=== PATIENT | male | born 1955 | race Caucasian/White ===

== ENCOUNTER 2018-01-10 22:29 | Emergency (ER) | payer BC ==
[2018-01-11] MEDS ORDERED: Ofloxacin 0.3% OTIC.SOL* 5 ML BTL LEFT EAR ONE (01:03)
[2018-01-11 01:44] VITALS: BP 138/94
--- NOTE | 2018-01-11 02:40 | ED ---
Moy Sims Stephanie, scribed for Silvia Stauffer MD on 01/11/18 at 0131 . Throat Pain/Nasal Congestion - HPI Summary HPI Summary: The pt is a 62 y/o M presenting to the ED with c/o L ear pain and humming that began at 13:30 today s/p ear cleaning at [facility] at 13:00. HPI limited due to the pt being a poor historian. The pt states he consumed ETOH today. He states the doctor at [facility] also used q-tips as well as flushing out ears. - History of Current Complaint Chief Complaint: EDEarPain Time Seen by Provider: 01/10/18 23:56 Hx Obtained From: Patient Onset/Duration: Lasting Hours, Still Present Severity: Moderate - Allergies/Home Medications Allergies/Adverse Reactions: Allergies Allergy/AdvReac Type Severity Reaction Status Date / Time No Known Allergies Allergy Verified 01/10/18 22:37 PMH/Surg Hx/FS Hx/Imm Hx Endocrine/Hematology History: Reports: Hx Thyroid Disease Denies: Hx Diabetes Cardiovascular History: Reports: Hx Hypertension Respiratory History: Denies: Hx Asthma, Hx Chronic Obstructive Pulmonary Disease (COPD) GI History: Denies: Hx Ulcer EENT History: Denies: Hx Deafness - Cancer History Cancer Type, Location and Year: 1978 Testicular CA - Surgical History Surgery Procedure, Year, and Place: 1978: Lymph node removal groin/back secondary to teticular CA Infectious Disease History: No Infectious Disease History: Denies: Hx Hepatitis, Hx Human Immunodeficiency Virus (HIV), Traveled Outside the [place] in Last 30 Days - Family History Known Family History: Positive: Unknown - The pt denies and fhx. - Social History Occupation: Employed Part-time Lives: With Family Alcohol Use: Occasionally Hx Substance Use: No Substance Use Type: Reports: None Hx Tobacco Use: Yes Smoking Status (MU): Former Smoker Review of Systems Negative: Fever Positive: Ear Ache - L side, Other - bleeding from L ear All Other Systems Reviewed And Are Negative: Yes Physical Exam - Summary Physical Exam Summary: VITAL SIGNS: Reviewed. GENERAL: Patient is a well-developed and nourished MALE who is lying comfortable in the stretcher. Patient is not in any acute respiratory distress. HEAD AND FACE: No signs of trauma. No ecchymosis, hematomas or skull depressions. No sinus tenderness. EYES: PERRLA, EOMI x 2, No injected conjunctiva, no nystagmus. EARS: L ear contains white bacterium soaked with blood, R ear has dry wax. L ear not able to see TM. ED physician attempted to move bloody material however, it is stuck to the ear canal. After removing some dried material, ED physician still cannot see TM. Decreased hearing in L ear. MOUTH: Oropharynx within normal limits. NECK: Supple, trachea is midline, no adenopathy, no JVD, no carotid bruit, no c- spine tenderness, neck with full ROM. CHEST: Symmetric, no tenderness at palpation LUNGS: Clear to auscultation bilaterally. No wheezing or crackles. CVS: Regular rate and rhythm, S1 and S2 present, no murmurs or gallops appreciated. ABDOMEN: Soft, non-tender. No signs of distention. No rebound no guarding, and no masses palpated. Bowel sounds are normal. EXTREMITIES: FROM in all major joints, no edema, no cyanosis or clubbing. NEURO: Alert and oriented x 3. No acute neurological deficits. Speech is normal and follows commands. SKIN: Dry and warm Triage Information Reviewed: Yes Vital Signs On Initial Exam: Initial Vitals Temp Pulse Resp BP Pulse Ox 97.2 F 92 18 157/97 92 01/10/18 22:35 01/10/18 22:35 01/10/18 22:35 01/10/18 22:35 01/10/18 22:35 Vital Signs Reviewed: Yes Diagnostics - Vital Signs Vital Signs Temp Pulse Resp BP Pulse Ox 01/10/18 22:35 97.2 F 92 18 157/97 92 - Laboratory Lab Statement: Any lab studies that have been ordered have been reviewed, and results considered in the medical decision making process. EENT Course/Dx - Course Course Of Treatment: The pt is a 62 y/o M presenting to the ED with c/o L ear pain and humming that began at 13:30 today s/p ear cleaning at [facility] at 13: 00. HPI limited due to the pt being a poor historian. The pt states he consumed ETOH today. He states the doctor at [facility] also used q-tips as well as flushing out ears. - Diagnoses Provider Diagnoses: Tympanic membrane perforation Discharge - Sign-Out/Discharge Documenting (check all that apply): Discharge - Discharge Plan Condition: Stable Disposition: HOME Patient Education Materials: Ruptured Eardrum (ED) Forms: *Work Release Referrals: Cecilio De La Rosa MD [Medical Doctor] - As Soon As Possible Additional Instructions: RETURN TO EMERGENCY DEPARTMENT FOR ANY NEW OR WORSENING SYMPTOMS The documentation as recorded by the Moy gibbs Stephanie accurately reflects the service I personally performed and the decisions made by , Silvia Stauffer MD.
== END 2018-01-11 01:43 | disposition home or self-care (01) ==
LOC: ED 22:29
DX: H72.92 Unspecified perforation of tympanic membrane, left ear (principal); E07.9 Disorder of thyroid, unspecified; I10 Essential (primary) hypertension; Z87.891 Personal history of nicotine dependence
CPT/HCPCS: 99282; A9270-GY

== ENCOUNTER 2019-06-09 08:30 | Emergency (ER) | payer BC, OTHER ==
[2019-06-09] MEDS ORDERED: Lidocaine 1% w EPI 1:100,000* MDV 20 ML VIAL INJ ONE (08:58)
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
[2019-06-09 10:20] LABS: ABS Neutrophils 7.6 10^3/ul (1.5-7.7); Hematocrit 50 % (42-52); Hemoglobin 17.9 g/dL (14.0-18.0); Mean Corpuscular HGB Conc 36 g/dL (31-36); Mean Corpuscular Hemoglobin 38 pg (27-31); Mean Corpuscular Volume 106 fL (80-94); Mean Platelet Volume 6.5 fL (7.4-10.4); Platelet Count 281 10^3/uL (150-450); Red Blood Count 4.73 10^6 /uL (4.18-5.48); Red Cell Distribution Width 14 % (10-15); White Blood Count 9.1 10^3/uL (3.5-10.8)
[2019-06-09 10:24] LABS: Activated Partial Thrombo Time 53.4 seconds (26.0-38.0); INR 1.97 (0.82-1.09)
[2019-06-09 10:38] LABS: Albumin 3.3 g/dL (3.2-5.2); Albumin/Globulin Ratio 1.1 (1-3); BUN/Creatinine Ratio 9.6 (8-20); Calcium 9.5 mg/dL (8.6-10.3); EGFR Non-African American 63.6 (>60); Globulin 2.9 g/dL (2-4); Potassium 4.5 mmol/L (3.5-5.0); Total Bilirubin 0.7 mg/dL (0.2-1.0); Total Protein 6.2 g/dL (6.4-8.9)
[2019-06-09 10:59] LABS: ABS Basophils 0.1 10^3/ul (0-0.2); ABS Eosinophils 0.1 10^3/ul (0-0.6); ABS Lymphocytes 0.8 10^3/ul (1.0-4.8); ABS Monocytes 0.5 10^3/ul (0-0.8); Eosinophil % 1.4 %; Nucleated Red Blood Cells % 0.1
[2019-06-09] MEDS ORDERED: NS 0.9% 1000 ML** 1,000 ML IV ONE (11:35)
[2019-06-09 11:45] VITALS: BP 131/101
== END 2019-06-09 11:45 | disposition home or self-care (01) ==
LOC: ED 08:30
DX: S01.111A Laceration without foreign body of right eyelid and periocular area, initial encounter (principal); S02.80XA Fracture of other specified skull and facial bones, unspecified side, initial encounter for closed fracture; M48.02 Spinal stenosis, cervical region; Y04.2XXA Assault by strike against or bumped into by another person, initial encounter; Y92.811 Bus as the place of occurrence of the external cause; Y99.0 Civilian activity done for income or pay; I48.91 Unspecified atrial fibrillation; E07.9 Disorder of thyroid, unspecified; I10 Essential (primary) hypertension; F17.200 Nicotine dependence, unspecified, uncomplicated; Z79.01 Long term (current) use of anticoagulants; Z79.899 Other long term (current) drug therapy
CPT/HCPCS: 12013; 36415; 70450; 70486; 72125; 80053; 85025; 85610; 85730; 99282

== ENCOUNTER 2021-11-28 05:15 | Inpatient (IN) ==
[2021-11-28] MEDS ORDERED: Lactated Ringers 1000 ml BAG 1,000 ML IV ONE (06:55)
[2021-11-28 07:55] LABS: ABS Lymphocytes 0.2 10^3/ul (1.0-4.8); ABS Monocytes 0.2 10^3/ul (0-0.8); ABS Neutrophils 10.1 10^3/ul (1.5-7.7); Eosinophil % 0.2 %; Hematocrit 40 % (42-52); Hemoglobin 13.6 g/dL (14.0-18.0); Lymphocyte % 1.7 %; Mean Corpuscular HGB Conc 34 g/dL (31-36); Mean Corpuscular Hemoglobin 37 pg (27-31); Mean Corpuscular Volume 107 fL (80-94); Mean Platelet Volume 7.6 fL (7.4-10.4); Platelet Count 261 10^3/uL (150-450); Red Blood Count 3.72 10^6 /uL (4.18-5.48); Red Cell Distribution Width 14 % (10-15); White Blood Count 10.5 10^3/uL (3.5-10.8)
[2021-11-28 07:56] LABS: Urine Appearance Clear; Urine Bilirubin Negative (Negative); Urine Blood 3+ (Negative); Urine Color Straw; Urine Glucose Negative (Negative); Urine Ketones Negative (Negative); Urine Nitrite Negative (Negative); Urine Protein 3+(>=500 mg/dL) (Negative); Urine Specific Gravity 1.007 (1.002-1.030); Urine Urobilinogen Negative (Negative)
[2021-11-28 08:04] LABS: ALT 17 U/L (7-52); Albumin 3.2 g/dL (3.2-5.2); Alkaline Phosphatase 45 U/L (35-149); Blood Urea Nitrogen 27 mg/dL (6-24); C Reactive Protein 17.66 mg/L (<8.01); CO2 Carbon Dioxide 21 mmol/L (22-32); Calcium 9.1 mg/dL (8.6-10.3); Chloride 102 mmol/L (101-111); Globulin 3.3 g/dL (2-4); Glucose 113 mg/dL (70-100); Sodium 132 mmol/L (135-145); Total Protein 6.5 g/dL (6.4-8.9); eGFR CKD-EPI 27.8 (>60)
[2021-11-28 08:08] LABS: Influenza A Molecular Negative (Negative); Influenza B Molecular Negative (Negative)
[2021-11-28 08:17] LABS: Urine Bacteria Absent (Absent); Urine Red Blood Cell 3+(>10/hpf) (Absent); Urine White Blood Cell Trace(0-5/hpf) (Absent)
[2021-11-28 08:19] LABS: Troponin I 0.09 ng/mL (<0.03)
[2021-11-28 08:26] LABS: Anion Gap 9 mmol/L (2-11)
[2021-11-28] MEDS ORDERED: Thiamine 100 MG/ML 2 ml VIAL (200 mg) IM ONE (09:07)
[2021-11-28 09:23] LABS: Activated Partial Thrombo Time 36.3 seconds (26.0-38.0); INR 1.07 (0.86-1.15)
[2021-11-28] MEDS ORDERED: Nicotine Lozenge mini 2 MG LOZNG.MINI MT PRN (09:25)
[2021-11-28 10:05] LABS: Rapid COVID-19 Molecular Undetected (Undetected)
[2021-11-28 10:12] LABS: Alcohol, S < 13 mg/dL (<13)
[2021-11-28] MEDS ORDERED: Albuterol HFA INHALER 8 gm MDI INH PRN (10:30)
[2021-11-28 11:21] LABS: Urine Benzodiazepine Screen None Detected (None Detect); Urine Cannabinoids Screen None Detected (None Detect); Urine Opiates Screen None Detected (None Detect)
[2021-11-28 11:31] LABS: Troponin I 0.08 ng/mL (<0.03)
[2021-11-28 12:36] LABS: Potassium, Whole Blood 4.8 mmol/L (3.4-4.5)
[2021-11-28 13:01] LABS: Troponin I 0.08 ng/mL (<0.03)
[2021-11-28] MEDS: Multivitamins/Minerals TAB PO SCH (13:26)
[2021-11-28 13:29] LABS: Anion Gap 10 mmol/L (2-11); Blood Urea Nitrogen 28 mg/dL (6-24); CO2 Carbon Dioxide 22 mmol/L (22-32); Calcium 9.1 mg/dL (8.6-10.3); Chloride 101 mmol/L (101-111); Glucose 224 mg/dL (70-100); Potassium 4.7 mmol/L (3.5-5.0); Sodium 133 mmol/L (135-145); eGFR CKD-EPI 27.8 (>60)
[2021-11-28 14:26] LABS: Urine Creatinine Concentration 42.77 mg/dL
[2021-11-28 17:46] LABS: Troponin I 0.08 ng/mL (<0.03)
[2021-11-28] MEDS ORDERED: Furosemide 40 mg/4 ml IV VIAL IV ONE (19:12)
[2021-11-28] MEDS ORDERED: SPIRIVA Respimat (tiotropium) 2.5 mcg/inh Inhaler INH SCH (20:00)
[2021-11-28] MEDS: SPIRIVA Respimat (tiotropium) 2.5 mcg/inh Inhaler INH SCH (20:31)
[2021-11-29 06:23] LABS: Calcium 8.6 mg/dL (8.6-10.3); Potassium 4.2 mmol/L (3.5-5.0); eGFR CKD-EPI 28.7 (>60)
[2021-11-29 06:50] LABS: TSH Ultra Thyroid Stim Horm 3.5 mcIU/mL (0.34-5.60)
[2021-11-29] MEDS: Multivitamins/Minerals TAB PO SCH (10:26)
[2021-11-29] MEDS ORDERED: Furosemide 40 mg/4 ml IV VIAL IV ONE (11:17)
[2021-11-29] MEDS: SPIRIVA Respimat (tiotropium) 2.5 mcg/inh Inhaler INH SCH (19:26)
[2021-11-29 23:44] LABS: Magnesium 1.8 mg/dL (1.9-2.7)
[2021-11-30 07:30] LABS: Calcium 9.1 mg/dL (8.6-10.3); Magnesium 1.7 mg/dL (1.9-2.7); Potassium 3.8 mmol/L (3.5-5.0); eGFR CKD-EPI 29.6 (>60)
[2021-11-30] MEDS ORDERED: Furosemide 40 mg/4 ml IV VIAL IV SLOW PU SCH (09:00)
[2021-11-30] MEDS: Multivitamins/Minerals TAB PO SCH (09:20)
[2021-11-30 12:06] LABS: ABS Basophils 0.1 10^3/ul (0-0.2); ABS Eosinophils 0.1 10^3/ul (0-0.6); ABS Lymphocytes 0.9 10^3/ul (1.0-4.8); ABS Monocytes 0.8 10^3/ul (0-0.8); ABS Neutrophils 9.3 10^3/ul (1.5-7.7); Eosinophil % 0.6 %; Hematocrit 43 % (42-52); Hemoglobin 14.6 g/dL (14.0-18.0); Lymphocyte % 8.4 %; Mean Corpuscular HGB Conc 34 g/dL (31-36); Mean Corpuscular Hemoglobin 37 pg (27-31); Mean Corpuscular Volume 107 fL (80-94); Mean Platelet Volume 7.3 fL (7.4-10.4); Platelet Count 311 10^3/uL (150-450); Red Blood Count 3.98 10^6 /uL (4.18-5.48); Red Cell Distribution Width 14 % (10-15); White Blood Count 11.2 10^3/uL (3.5-10.8)
[2021-11-30 16:31] VITALS: BP 150/94
[2021-11-30] MEDS: SPIRIVA Respimat (tiotropium) 2.5 mcg/inh Inhaler INH SCH (19:39)
== END 2021-11-30 16:15 | disposition home or self-care (01) | DRG 291 ==
LOC: ED 05:15 → EDHOLD 09:27 → SUATTDRO 09:27 → MEDTELE 16:36
PROVIDERS: ADMIT Internal Medicine; ATTEND Internal Medicine

== ENCOUNTER 2022-08-20 10:12 | Inpatient (IN) ==
[2022-08-20 12:21] LABS: ABS Basophils 0.1 10^3/ul (0-0.2); ABS Eosinophils 0.2 10^3/ul (0-0.6); ABS Lymphocytes 0.4 10^3/ul (1.0-4.8); ABS Monocytes 0.4 10^3/ul (0-0.8); ABS Neutrophils 7.6 10^3/ul (1.5-7.7); Eosinophil % 2.6 %; Hematocrit 32 % (42-52); Hemoglobin 10.5 g/dL (14.0-18.0); Lymphocyte % 5.1 %; Mean Corpuscular HGB Conc 33 g/dL (31-36); Mean Corpuscular Hemoglobin 34 pg (27-31); Mean Corpuscular Volume 101 fL (80-94); Mean Platelet Volume 6.5 fL (7.4-10.4); Platelet Count 361 10^3/uL (150-450); Red Blood Count 3.13 10^6 /uL (4.18-5.48); Red Cell Distribution Width 15 % (10-15); White Blood Count 8.6 10^3/uL (3.5-10.8)
[2022-08-20 12:32] LABS: Activated Partial Thrombo Time 44.7 seconds (26.0-38.0); INR 1.14 (0.89-1.11)
[2022-08-20 12:56] LABS: Albumin/Globulin Ratio 1.1 (1-3); C Reactive Protein 63.62 mg/L (<8.01); Calcium 8.8 mg/dL (8.6-10.3); Globulin 2.7 g/dL (2-4); Potassium 4.2 mmol/L (3.5-5.0); Total Bilirubin 0.3 mg/dL (0.2-1.0); Total Protein 5.7 g/dL (6.4-8.9); eGFR CKD-EPI 10.1 (>60)
[2022-08-20 16:38] LABS: Urine Appearance Clear; Urine Bilirubin Negative (Negative); Urine Blood 2+ (Negative); Urine Color Straw; Urine Glucose 1+(50 mg/dL) (Negative); Urine Ketones Negative (Negative); Urine Nitrite Negative (Negative); Urine Protein 3+(>=500 mg/dL) (Negative); Urine Specific Gravity 1.004 (1.002-1.030); Urine Urobilinogen Negative (Negative)
[2022-08-20 16:50] LABS: Urine Bacteria Absent (Absent); Urine Red Blood Cell 2+(6-10/hpf) (Absent); Urine Squamous Epithelial Cell Present (Absent); Urine White Blood Cell Absent (Absent)
[2022-08-20] MEDS ORDERED: Ondansetron 4 mg VIAL 2 MG/ML 2 ml VIAL IV PRN (16:51)
[2022-08-20 16:59] LABS: High Sensitivity Troponin 1 Hr 13 pg/mL (<20)
[2022-08-20] MEDS ORDERED: Lactated Ringers 1000 ml BAG 1,000 ML IV ONE (17:38)
[2022-08-20] MEDS ORDERED: Albuterol HFA INHALER 8 gm MDI INH PRN (17:45)
[2022-08-20 18:27] LABS: Urine Creatinine Concentration 27.44 mg/dL
[2022-08-20] MEDS ORDERED: Nicotine GUM 4MG FRUIT FLAVOR PO PRN (18:36)
[2022-08-20] MEDS ORDERED: Nicotine PATCH 21 MG/24 HR PATCH TRANSDERM ONE (18:36)
[2022-08-20 18:53] LABS: Activated Partial Thrombo Time 42.8 seconds (26.0-38.0); INR 1.05 (0.89-1.11)
[2022-08-20 19:19] LABS: Urine Osmo 154 mOsm/kg (150-1150)
[2022-08-20 19:40] LABS: Hepatitis B Surface Antigen Nonreactive (Nonreactive)
[2022-08-20 19:41] LABS: Calcium 8.7 mg/dL (8.6-10.3); Magnesium 2.6 mg/dL (1.9-2.7); Potassium 4.1 mmol/L (3.5-5.0)
[2022-08-20 19:44] LABS: HIV 4th Generation Nonreactive (Nonreactive)
[2022-08-20 19:45] LABS: Hepatitis A Ab IgM Negative (Negative)
[2022-08-20 19:46] LABS: Hepatitis B Core IgM Nonreactive (Nonreactive); eGFR CKD-EPI 9.3 (>60)
[2022-08-20 19:58] LABS: Hepatitis C Antibody Negative (Negative)
[2022-08-20] MEDS ORDERED: Lactated Ringers 1000 ml BAG 1,000 ML IV SCH (20:00)
[2022-08-20 20:06] LABS: TSH Ultra Thyroid Stim Horm 13.17 mcIU/mL (0.34-5.60)
[2022-08-20] MEDS ORDERED: Bumetanide IV 0.25 MG/ML 4 ml VIAL (1 mg) SLOW PUSH ONE (20:07)
[2022-08-20] MEDS: Heparin 5000 UNITS/ML 1 mL VIAL SUBCUT SCH (20:48)
[2022-08-21] MEDS: SPIRIVA Respimat (tiotropium) 2.5 mcg/inh Inhaler INH SCH ×2 (00:58→19:26)
[2022-08-21 04:29] LABS: Calcium 8.1 mg/dL (8.6-10.3); Potassium 3.8 mmol/L (3.5-5.0); eGFR CKD-EPI 9.4 (>60)
[2022-08-21 08:26] LABS: ABS Eosinophils 0.4 10^3/ul (0-0.6); ABS Lymphocytes 0.5 10^3/ul (1.0-4.8); ABS Monocytes 0.5 10^3/ul (0-0.8); ABS Neutrophils 4.9 10^3/ul (1.5-7.7); Eosinophil % 6.6 %; Hematocrit 28 % (42-52); Hemoglobin 9.5 g/dL (14.0-18.0); Mean Corpuscular HGB Conc 34 g/dL (31-36); Mean Corpuscular Hemoglobin 34 pg (27-31); Mean Corpuscular Volume 101 fL (80-94); Mean Platelet Volume 6.3 fL (7.4-10.4); Platelet Count 290 10^3/uL (150-450); Red Blood Count 2.78 10^6 /uL (4.18-5.48); Red Cell Distribution Width 15 % (10-15); White Blood Count 6.4 10^3/uL (3.5-10.8)
[2022-08-21 09:11] LABS: Albumin 2.6 g/dL (3.2-5.2); Calcium 8.3 mg/dL (8.6-10.3); Globulin 2.5 g/dL (2-4); Magnesium 2.3 mg/dL (1.9-2.7); Phosphorus 5.6 mg/dL (2.5-5.0); Potassium 3.9 mmol/L (3.5-5.0); Total Bilirubin 0.2 mg/dL (0.2-1.0); Total Protein 5.1 g/dL (6.4-8.9); eGFR CKD-EPI 9.1 (>60)
[2022-08-21] MEDS ORDERED: Bumetanide IV 0.25 MG/ML 4 ml VIAL (1 mg) SLOW PUSH SCH (09:29)
[2022-08-21 09:48] LABS: Calcium 8.2 mg/dL (8.6-10.3); HDL Cholesterol 59.2 mg/dL; Potassium 3.9 mmol/L (3.5-5.0); eGFR CKD-EPI 9.1 (>60)
[2022-08-21] MEDS: Heparin 5000 UNITS/ML 1 mL VIAL SUBCUT SCH ×2 (10:06→22:15)
[2022-08-21] MEDS ORDERED: D5W 1000 ml BAG 1,000 ML IV ONE (12:05)
[2022-08-21 14:14] LABS: Calcium 8.7 mg/dL (8.6-10.3); eGFR CKD-EPI 9.1 (>60)
[2022-08-21 14:52] LABS: Hepatitis B Surface Ab Not Immune (Immune)
[2022-08-21 14:53] LABS: Hepatitis C Antibody Negative (Negative)
[2022-08-22 05:45] LABS: ABS Basophils 0.1 10^3/ul (0-0.2); ABS Eosinophils 0.4 10^3/ul (0-0.6); ABS Lymphocytes 0.5 10^3/ul (1.0-4.8); ABS Monocytes 0.5 10^3/ul (0-0.8); ABS Neutrophils 4.6 10^3/ul (1.5-7.7); Eosinophil % 7.2 %; Hematocrit 26 % (42-52); Hemoglobin 8.6 g/dL (14.0-18.0); Lymphocyte % 8.7 %; Mean Corpuscular HGB Conc 34 g/dL (31-36); Mean Corpuscular Hemoglobin 34 pg (27-31); Mean Corpuscular Volume 100 fL (80-94); Mean Platelet Volume 6.3 fL (7.4-10.4); Platelet Count 274 10^3/uL (150-450); Red Blood Count 2.57 10^6 /uL (4.18-5.48); Red Cell Distribution Width 15 % (10-15); White Blood Count 6.2 10^3/uL (3.5-10.8)
[2022-08-22 06:52] LABS: Calcium 8.1 mg/dL (8.6-10.3); Magnesium 2.1 mg/dL (1.9-2.7); Potassium 3.8 mmol/L (3.5-5.0); eGFR CKD-EPI 8.7 (>60)
[2022-08-22] MEDS: Nicotine PATCH 21 MG/24 HR PATCH TRANSDERM SCH (08:31)
[2022-08-22] MEDS: Heparin 5000 UNITS/ML 1 mL VIAL SUBCUT SCH ×2 (08:31→20:30)
[2022-08-22 13:16] LABS: Rapid COVID-19 Molecular Undetected (Undetected)
[2022-08-22 13:59] LABS: Calcium 8.9 mg/dL (8.6-10.3); Potassium 4.2 mmol/L (3.5-5.0); eGFR CKD-EPI 8.6 (>60)
[2022-08-22] MEDS: Sodium Citrate/Citric Acid LIQ 15 ML UDC PO SCH ×2 (14:45→20:30)
[2022-08-22] MEDS: Bumetanide IV 0.25 MG/ML 4 ml VIAL (1 mg) SLOW PUSH SCH (14:46)
[2022-08-22] MEDS: SPIRIVA Respimat (tiotropium) 2.5 mcg/inh Inhaler INH SCH (19:35)
[2022-08-23 02:48] LABS: Hepatitis B Surface Antigen Nonreactive (Nonreactive)
[2022-08-23 08:13] LABS: ABS Basophils 0.1 10^3/ul (0-0.2); ABS Eosinophils 0.5 10^3/ul (0-0.6); ABS Lymphocytes 0.6 10^3/ul (1.0-4.8); ABS Monocytes 0.6 10^3/ul (0-0.8); ABS Neutrophils 5.1 10^3/ul (1.5-7.7); Hematocrit 24 % (42-52); Hemoglobin 8.4 g/dL (14.0-18.0); Lymphocyte % 8.5 %; Mean Corpuscular HGB Conc 34 g/dL (31-36); Mean Corpuscular Hemoglobin 34 pg (27-31); Mean Corpuscular Volume 100 fL (80-94); Mean Platelet Volume 6.5 fL (7.4-10.4); Platelet Count 283 10^3/uL (150-450); Red Blood Count 2.44 10^6 /uL (4.18-5.48); Red Cell Distribution Width 15 % (10-15); White Blood Count 6.8 10^3/uL (3.5-10.8)
[2022-08-23 08:34] LABS: Calcium 8.3 mg/dL (8.6-10.3); Magnesium 2.1 mg/dL (1.9-2.7); eGFR CKD-EPI 8.4 (>60)
[2022-08-23] MEDS: Bumetanide IV 0.25 MG/ML 4 ml VIAL (1 mg) SLOW PUSH SCH ×2 (10:44→17:38)
[2022-08-23] MEDS: Nicotine PATCH 21 MG/24 HR PATCH TRANSDERM SCH (11:07)
[2022-08-23] MEDS: Heparin 5000 UNITS/ML 1 mL VIAL SUBCUT SCH ×2 (11:08→19:57)
[2022-08-23] MEDS: Sodium Citrate/Citric Acid LIQ 15 ML UDC PO SCH ×3 (11:09→19:58)
[2022-08-23] MEDS: SPIRIVA Respimat (tiotropium) 2.5 mcg/inh Inhaler INH SCH (19:40)
[2022-08-24 07:25] LABS: ABS Basophils 0.1 10^3/ul (0-0.2); ABS Eosinophils 0.6 10^3/ul (0-0.6); ABS Lymphocytes 0.6 10^3/ul (1.0-4.8); ABS Monocytes 0.6 10^3/ul (0-0.8); ABS Neutrophils 5.4 10^3/ul (1.5-7.7); Eosinophil % 7.6 %; Hematocrit 24 % (42-52); Hemoglobin 8.4 g/dL (14.0-18.0); Lymphocyte % 8.7 %; Mean Corpuscular HGB Conc 35 g/dL (31-36); Mean Corpuscular Hemoglobin 35 pg (27-31); Mean Corpuscular Volume 100 fL (80-94); Mean Platelet Volume 6.6 fL (7.4-10.4); Nucleated Red Blood Cells % 0.1; Platelet Count 314 10^3/uL (150-450); Red Blood Count 2.43 10^6 /uL (4.18-5.48); Red Cell Distribution Width 15 % (10-15); White Blood Count 7.2 10^3/uL (3.5-10.8)
[2022-08-24 07:40] LABS: Albumin 2.6 g/dL (3.2-5.2); Albumin/Globulin Ratio 1.1 (1-3); Calcium 8.2 mg/dL (8.6-10.3); Globulin 2.3 g/dL (2-4); Magnesium 1.9 mg/dL (1.9-2.7); Potassium 3.8 mmol/L (3.5-5.0); Total Bilirubin 0.2 mg/dL (0.2-1.0); Total Protein 4.9 g/dL (6.4-8.9); eGFR CKD-EPI 7.9 (>60)
[2022-08-24] MEDS: Sodium Citrate/Citric Acid LIQ 15 ML UDC PO SCH ×3 (09:18→20:43)
[2022-08-24] MEDS: Bumetanide IV 0.25 MG/ML 4 ml VIAL (1 mg) SLOW PUSH SCH ×2 (09:20→19:56)
[2022-08-24] MEDS: Nicotine PATCH 21 MG/24 HR PATCH TRANSDERM SCH (09:20)
[2022-08-24 10:14] LABS: Kappa Free Light Chain 11.8 mg/dL; Lambda Free Light Chain, S 9.23 mg/dL
[2022-08-24] MEDS ORDERED: Benzocaine/Butamben/Tetracain (CETACAINE - SINGLE USE) 5 gm TOPICAL ONE (10:59)
[2022-08-24] MEDS ORDERED: Dexamethasone IV 4 MG/ML VIAL 1 ml VIAL ONE (11:42)
[2022-08-24] MEDS ORDERED: Midazolam 2 mg/2 ml VIAL 1 mg/ml 2 ml VIAL (2 mg) ONE (11:42)
[2022-08-24] MEDS ORDERED: Propofol 10 MG/ML 20 ML BTL ONE (11:42)
[2022-08-24] MEDS ORDERED: Ondansetron 4 mg VIAL 2 MG/ML 2 ml VIAL ONE (11:42)
[2022-08-24] MEDS ORDERED: Rocuronium 50 mg VIAL 10 mg/ml 5 ml VIAL (50 mg) ONE (11:42)
[2022-08-24] MEDS ORDERED: fentaNYL 100 mcg/2 ml 50 MCG/ML VIAL ONE (11:42)
[2022-08-24] MEDS ORDERED: Lidocaine 2% PF 5 ML VIAL ONE (11:42)
[2022-08-24] MEDS ORDERED: Phenylephrine IV 10 MG/ML 1 ml VIAL ONE (11:44)
[2022-08-24] MEDS ORDERED: NS 0.45% 1000 ml BAG 1,000 ML IV SCH (12:00)
[2022-08-24 13:09] LABS: C-ANCA Negative (Negative); P-ANCA Negative (Negative)
[2022-08-24] MEDS ORDERED: Sugammadex 500 MG/5 ML 5 ml VIAL IV PUSH ONE (13:18)
[2022-08-24] MEDS ORDERED: Naloxone 0.4 mg VIAL 0.4 mg/ml 1 ml VIAL IV PRN (13:47)
[2022-08-24] MEDS ORDERED: Levalbuterol 0.63MG/3ML NEB UNIT OF USE INH PRN (13:47)
[2022-08-24] MEDS: SPIRIVA Respimat (tiotropium) 2.5 mcg/inh Inhaler INH SCH (20:19)
[2022-08-25 09:37] LABS: ABS Lymphocytes 0.4 10^3/ul (1.0-4.8); ABS Monocytes 0.2 10^3/ul (0-0.8); ABS Neutrophils 9.7 10^3/ul (1.5-7.7); Eosinophil % 0.1 %; Hematocrit 26 % (42-52); Hemoglobin 8.7 g/dL (14.0-18.0); Lymphocyte % 3.8 %; Mean Corpuscular HGB Conc 34 g/dL (31-36); Mean Corpuscular Hemoglobin 34 pg (27-31); Mean Corpuscular Volume 101 fL (80-94); Mean Platelet Volume 6.6 fL (7.4-10.4); Platelet Count 334 10^3/uL (150-450); Red Blood Count 2.57 10^6 /uL (4.18-5.48); Red Cell Distribution Width 15 % (10-15); White Blood Count 10.3 10^3/uL (3.5-10.8)
[2022-08-25] MEDS: Nicotine PATCH 21 MG/24 HR PATCH TRANSDERM SCH (09:52)
[2022-08-25] MEDS: Sodium Citrate/Citric Acid LIQ 15 ML UDC PO SCH ×2 (09:53→14:37)
[2022-08-25] MEDS: Bumetanide IV 0.25 MG/ML 4 ml VIAL (1 mg) SLOW PUSH SCH (09:54)
[2022-08-25 10:08] LABS: Blood Urea Nitrogen 83 mg/dL (6-24); CO2 Carbon Dioxide 19 mmol/L (22-32); Calcium 8.5 mg/dL (8.6-10.3); Chloride 94 mmol/L (101-111); Glucose 148 mg/dL (70-100); Sodium 128 mmol/L (135-145); eGFR CKD-EPI 7.4 (>60)
[2022-08-25 10:09] LABS: Albumin 2.2 g/dL (3.4-4.7); Albumin/Globulin Ratio 0.62; Gamma Globulin 1.1 g/dL (0.6-1.6); Total Protein(PEP) 5.8 g/dL (6.3 - 7.9)
[2022-08-25 10:12] LABS: Anion Gap 15 mmol/L (2-11)
[2022-08-25 12:11] LABS: Complement C3 97 mg/dL (75 - 175)
[2022-08-25 13:31] LABS: Cryoglobulin Negative %ppt (Negative)
[2022-08-25 16:44] VITALS: BP 142/81
[2022-08-26 09:16] LABS: Flag, M-protein Isotype Negative (Negative)
== END 2022-08-25 17:40 | disposition home or self-care (01) | DRG 988 ==
LOC: ED 10:12 → SUATTDRO 16:51 → EDHOLD 16:51 → MEDTELE 08-21 10:30
PROVIDERS: ADMIT Internal Medicine; ATTEND Internal Medicine

== ENCOUNTER 2022-09-06 13:23 | Inpatient (IN) ==
[2022-09-06] MEDS ORDERED: NS 0.9% 1000 ml BAG 1,000 ML IV ONE (13:40)
[2022-09-06 14:26] LABS: ABS Eosinophils 0.1 10^3/ul (0-0.6); ABS Lymphocytes 0.4 10^3/ul (1.0-4.8); ABS Monocytes 0.3 10^3/ul (0-0.8); ABS Neutrophils 11.6 10^3/ul (1.5-7.7); Eosinophil % 0.7 %; Hematocrit 30 % (42-52); Hemoglobin 10.2 g/dL (14.0-18.0); Lymphocyte % 2.8 %; Mean Corpuscular HGB Conc 34 g/dL (31-36); Mean Corpuscular Hemoglobin 34 pg (27-31); Mean Corpuscular Volume 99 fL (80-94); Mean Platelet Volume 6.8 fL (7.4-10.4); Platelet Count 343 10^3/uL (150-450); Red Blood Count 3.06 10^6 /uL (4.18-5.48); Red Cell Distribution Width 14 % (10-15); White Blood Count 12.4 10^3/uL (3.5-10.8)
[2022-09-06 14:35] LABS: Activated Partial Thrombo Time 40.4 seconds (26.0-38.0); INR 1.05 (0.89-1.11)
[2022-09-06 14:46] LABS: High Sens Troponin Baseline 34 pg/mL (<20)
[2022-09-06 15:11] LABS: ALT 24 U/L (7-52); AST 53 U/L (13-39); Albumin 3.1 g/dL (3.2-5.2); Albumin/Globulin Ratio 1.1 (1-3); Alcohol, S < 13 mg/dL (<13); Alkaline Phosphatase 70 U/L (35-149); Blood Urea Nitrogen 69 mg/dL (6-24); C Reactive Protein 91.21 mg/L (<8.01); CO2 Carbon Dioxide 16 mmol/L (22-32); Calcium 8.3 mg/dL (8.6-10.3); Chloride 83 mmol/L (101-111); Creatine Kinase 1695 U/L (10-223); Globulin 2.7 g/dL (2-4); Glucose 65 mg/dL (70-100); Potassium 3.6 mmol/L (3.5-5.0); Total Protein 5.8 g/dL (6.4-8.9); eGFR CKD-EPI 6.9 (>60)
[2022-09-06 15:34] LABS: Anion Gap 16 mmol/L (2-11); Sodium 115 mmol/L (135-145)
[2022-09-06 16:14] LABS: High Sensitivity Troponin 1 Hr 34 pg/mL (<20)
[2022-09-06] MEDS ORDERED: Potassium Chloride LIQUID 20 MEQ/15 ML LIQUID PO ONE (16:42)
[2022-09-06 16:53] LABS: Phosphorus 7.8 mg/dL (2.5-5.0)
[2022-09-06] MEDS ORDERED: Sodium Chloride 3% HYPERTONIC 120 ML IV ONE (17:30)
[2022-09-06 17:35] LABS: Urine Appearance Clear; Urine Bilirubin Negative (Negative); Urine Blood 3+ (Negative); Urine Color Yellow; Urine Glucose 1+(50 mg/dL) (Negative); Urine Ketones Negative (Negative); Urine Nitrite Negative (Negative); Urine Protein 3+(>=500 mg/dL) (Negative); Urine Specific Gravity 1.009 (1.002-1.030); Urine Urobilinogen Negative (Negative)
[2022-09-06 17:39] LABS: Urine Potassium Concentration 25.5 mmol/L
[2022-09-06 17:40] LABS: Urine Bacteria Absent (Absent); Urine Red Blood Cell 3+(>10/hpf) (Absent); Urine White Blood Cell Trace(0-5/hpf) (Absent)
[2022-09-06 17:52] LABS: TSH Ultra Thyroid Stim Horm 7.89 mcIU/mL (0.34-5.60)
[2022-09-06 17:55] LABS: Osmolality Serum 264 mOsm/kg (275-295)
[2022-09-06 17:55] LABS: Urine Osmo 204 mOsm/kg (150-1150)
[2022-09-06] MEDS ORDERED: Thiamine 100 MG/ML 2 ml VIAL 500 MG in NS 0.9% 250 ml 250 ML IV ONE (18:30)
[2022-09-07 05:21] LABS: Hematocrit 23 % (42-52); Hemoglobin 7.7 g/dL (14.0-18.0); Mean Corpuscular HGB Conc 33 g/dL (31-36); Mean Corpuscular Hemoglobin 33 pg (27-31); Mean Corpuscular Volume 100 fL (80-94); Mean Platelet Volume 6.7 fL (7.4-10.4); Platelet Count 286 10^3/uL (150-450); Red Blood Count 2.33 10^6 /uL (4.18-5.48); Red Cell Distribution Width 14 % (10-15); White Blood Count 8.6 10^3/uL (3.5-10.8)
[2022-09-07 05:46] LABS: ABS Eosinophils 0.5 10^3/ul (0-0.6); ABS Lymphocytes 0.4 10^3/ul (1.0-4.8); ABS Monocytes 0.4 10^3/ul (0-0.8); ABS Neutrophils 7.2 10^3/ul (1.5-7.7); Eosinophil % 5.7 %
[2022-09-07 05:54] LABS: Blood Urea Nitrogen 73 mg/dL (6-24); Calcium 7.5 mg/dL (8.6-10.3); Chloride 92 mmol/L (101-111); Glucose 70 mg/dL (70-100); Sodium 120 mmol/L (135-145); eGFR CKD-EPI 6.9 (>60)
[2022-09-07 05:56] LABS: Anion Gap 15 mmol/L (2-11); CO2 Carbon Dioxide 13 mmol/L (22-32)
[2022-09-07] MEDS: Pantoprazole VIAL 40 MG VIAL IV SCH (05:59)
[2022-09-07 08:01] LABS: Hematocrit 22 % (42-52); Hemoglobin 7.5 g/dL (14.0-18.0)
[2022-09-07] MEDS: Multivitamins/Minerals TAB PO SCH (09:19)
[2022-09-07 12:33] LABS: ABS Basophils 0.1 10^3/ul (0-0.2); ABS Eosinophils 0.5 10^3/ul (0-0.6); ABS Lymphocytes 0.4 10^3/ul (1.0-4.8); ABS Monocytes 0.4 10^3/ul (0-0.8); ABS Neutrophils 8.6 10^3/ul (1.5-7.7); Eosinophil % 4.6 %; Hematocrit 23 % (42-52); Hemoglobin 7.6 g/dL (14.0-18.0); Lymphocyte % 3.6 %; Mean Corpuscular HGB Conc 33 g/dL (31-36); Mean Corpuscular Hemoglobin 33 pg (27-31); Mean Corpuscular Volume 100 fL (80-94); Mean Platelet Volume 7.1 fL (7.4-10.4); Nucleated Red Blood Cells % 0.1; Platelet Count 286 10^3/uL (150-450); Red Blood Count 2.31 10^6 /uL (4.18-5.48); Red Cell Distribution Width 14 % (10-15); White Blood Count 9.8 10^3/uL (3.5-10.8)
[2022-09-07 12:56] LABS: Calcium 7.6 mg/dL (8.6-10.3); Potassium 3.9 mmol/L (3.5-5.0); eGFR CKD-EPI 6.8 (>60)
[2022-09-07] MEDS: Thiamine 100 MG/ML 2 ml VIAL 250 MG in NS 0.9% 100 ml BAG 100 ML IV SCH (16:56)
[2022-09-07] MEDS: SPIRIVA Respimat (tiotropium) 2.5 mcg/inh Inhaler INH SCH (20:35)
[2022-09-08 05:26] LABS: ABS Eosinophils 0.5 10^3/ul (0-0.6); ABS Lymphocytes 0.4 10^3/ul (1.0-4.8); ABS Monocytes 0.4 10^3/ul (0-0.8); ABS Neutrophils 6.5 10^3/ul (1.5-7.7); Eosinophil % 6.3 %; Hematocrit 22 % (42-52); Hemoglobin 7.2 g/dL (14.0-18.0); Lymphocyte % 5.6 %; Mean Corpuscular HGB Conc 33 g/dL (31-36); Mean Corpuscular Hemoglobin 33 pg (27-31); Mean Corpuscular Volume 100 fL (80-94); Mean Platelet Volume 7.1 fL (7.4-10.4); Platelet Count 261 10^3/uL (150-450); Red Blood Count 2.16 10^6 /uL (4.18-5.48); Red Cell Distribution Width 14 % (10-15); White Blood Count 7.8 10^3/uL (3.5-10.8)
[2022-09-08 05:44] LABS: Calcium 7.3 mg/dL (8.6-10.3); Chloride 101 mmol/L (101-111); Sodium 127 mmol/L (135-145)
[2022-09-08 05:46] LABS: Anion Gap 12 mmol/L (2-11); CO2 Carbon Dioxide 14 mmol/L (22-32)
[2022-09-08 05:49] LABS: Blood Urea Nitrogen 71 mg/dL (6-24); Glucose 100 mg/dL (70-100); eGFR CKD-EPI 6.5 (>60)
[2022-09-08] MEDS ORDERED: Nicotine PATCH 14 MG/24 HR PATCH TRANSDERM SCH (09:00)
[2022-09-08] MEDS: Multivitamins/Minerals TAB PO SCH (10:49)
[2022-09-08] MEDS: Pantoprazole VIAL 40 MG VIAL IV SCH (10:50)
[2022-09-08 11:25] LABS: Total Iron Binding Capacity 291 mcg/dL (250-450); Transferrin 208 mg/dL (203-362)
[2022-09-08 11:39] LABS: Ferritin 63.3 ng/mL (24-336)
[2022-09-08 11:44] LABS: Vitamin B12 > 1450 pg/mL (180-914)
[2022-09-08] MEDS: Sodium Bicarb 650 mg (ANTACID) TAB PO SCH ×2 (12:53→17:16)
[2022-09-08 15:37] LABS: Potassium Redraw 3.5 mmol/L (3.5-5.0)
[2022-09-08 15:44] LABS: Iron < 20 ug/dL (50-212)
[2022-09-08] MEDS: Thiamine 100 MG/ML 2 ml VIAL 250 MG in NS 0.9% 100 ml BAG 100 ML IV SCH (17:25)
[2022-09-08] MEDS: SPIRIVA Respimat (tiotropium) 2.5 mcg/inh Inhaler INH SCH (19:51)
[2022-09-09] MEDS: Sodium Bicarb 650 mg (ANTACID) TAB PO SCH ×2 (02:28→06:07)
[2022-09-09 05:45] LABS: ABS Lymphocytes 0.2 10^3/ul (1.0-4.8); ABS Neutrophils 8.7 10^3/ul (1.5-7.7); Eosinophil % 0.2 %; Hematocrit 23 % (42-52); Hemoglobin 7.7 g/dL (14.0-18.0); Mean Corpuscular HGB Conc 34 g/dL (31-36); Mean Corpuscular Hemoglobin 34 pg (27-31); Mean Corpuscular Volume 100 fL (80-94); Mean Platelet Volume 6.8 fL (7.4-10.4); Platelet Count 271 10^3/uL (150-450); Red Cell Distribution Width 14 % (10-15); White Blood Count 8.9 10^3/uL (3.5-10.8)
[2022-09-09 06:44] LABS: Calcium 7.8 mg/dL (8.6-10.3); Potassium 4.5 mmol/L (3.5-5.0); eGFR CKD-EPI 6.6 (>60)
[2022-09-09] MEDS: Multivitamins/Minerals TAB PO SCH (08:42)
[2022-09-09] MEDS: Pantoprazole VIAL 40 MG VIAL IV SCH (08:42)
[2022-09-09] MEDS ORDERED: Sodium Bicarb 650 mg (ANTACID) TAB PO SCH (12:00)
[2022-09-09] MEDS: Sodium Bicarb 8.4% Vial 50 ML 150 MEQ in D5W 1000 ml BAG 850 ML IV SCH (13:08)
[2022-09-09 15:27] LABS: Calcium 7.6 mg/dL (8.6-10.3); Potassium 4.2 mmol/L (3.5-5.0)
[2022-09-09 15:33] LABS: eGFR CKD-EPI 6.7 (>60)
[2022-09-09] MEDS: SPIRIVA Respimat (tiotropium) 2.5 mcg/inh Inhaler INH SCH (20:55)
[2022-09-10 01:07] LABS: Calcium 7.3 mg/dL (8.6-10.3); eGFR CKD-EPI 7.3 (>60)
[2022-09-10] MEDS: Sodium Bicarb 8.4% Vial 50 ML 150 MEQ in D5W 1000 ml BAG 850 ML IV SCH ×2 (03:20→16:21)
[2022-09-10 04:28] LABS: ABS Lymphocytes 0.2 10^3/ul (1.0-4.8); ABS Monocytes 0.1 10^3/ul (0-0.8); ABS Neutrophils 8.5 10^3/ul (1.5-7.7); Eosinophil % 0.1 %; Hematocrit 22 % (42-52); Hemoglobin 7.4 g/dL (14.0-18.0); Lymphocyte % 2.4 %; Mean Corpuscular HGB Conc 34 g/dL (31-36); Mean Corpuscular Hemoglobin 34 pg (27-31); Mean Corpuscular Volume 99 fL (80-94); Mean Platelet Volume 7.2 fL (7.4-10.4); Nucleated Red Blood Cells % 0.1; Platelet Count 283 10^3/uL (150-450); Red Blood Count 2.17 10^6 /uL (4.18-5.48); Red Cell Distribution Width 14 % (10-15); White Blood Count 8.8 10^3/uL (3.5-10.8)
[2022-09-10 05:05] LABS: Calcium 7.4 mg/dL (8.6-10.3); Magnesium 1.6 mg/dL (1.9-2.7); Potassium 4.1 mmol/L (3.5-5.0); eGFR CKD-EPI 7.5 (>60)
[2022-09-10] MEDS ORDERED: Magnesium Sulf 4 GM/100 ML IV 4,000 MG/100 ML BAG IVPB ONE (05:42)
[2022-09-10] MEDS ORDERED: Magnesium Sulfate 2 gm BAG 2 GM/50 ML BAG IVPB ONE (07:29)
[2022-09-10] MEDS ORDERED: Clindamycin 600 MG/D5W BAG 600 MG/50 ML BAG IV ONE (07:54)
[2022-09-10] MEDS ORDERED: Heparin 2 UNITS/ML IVPREMIX 1,000 UNIT/500 ML BAG IV ONE (08:53)
[2022-09-10] MEDS ORDERED: Lidocaine 1% VIAL 10 MG/ML VIAL 30 ML ONE (08:53)
[2022-09-10] MEDS ORDERED: fentaNYL 100 mcg/2 ml 50 MCG/ML VIAL ONE (09:13)
[2022-09-10] MEDS ORDERED: Midazolam 5 mg/5 ml VIAL 1 mg/ml 5 ml VIAL (5 mg) ONE (09:13)
[2022-09-10] MEDS ORDERED: Heparin 5000 UNITS/ML 1 mL VIAL ONE (09:29)
[2022-09-10] MEDS: Multivitamins/Minerals TAB PO SCH (10:10)
[2022-09-10] MEDS: Pantoprazole VIAL 40 MG VIAL IV SCH (10:11)
[2022-09-10] MEDS ORDERED: Iron Sucrose 200 MG in NS 0.9% 100 ml BAG 100 ML IVPB ONE (13:09)
[2022-09-10] MEDS: Heparin 1,000 UNIT/ML 10 ml (10,000 UNITS) CATHLAB/DIALYSIS DIALYSIS PRN (16:50)
[2022-09-10] MEDS: SPIRIVA Respimat (tiotropium) 2.5 mcg/inh Inhaler INH SCH (19:23)
[2022-09-10 19:39] LABS: Calcium 8.3 mg/dL (8.6-10.3); Potassium 4.3 mmol/L (3.5-5.0)
[2022-09-10 19:44] LABS: eGFR CKD-EPI 11.5 (>60)
[2022-09-11 08:20] LABS: Hematocrit 24 % (42-52); Hemoglobin 8.5 g/dL (14.0-18.0); Mean Corpuscular HGB Conc 36 g/dL (31-36); Mean Corpuscular Hemoglobin 35 pg (27-31); Mean Corpuscular Volume 99 fL (80-94); Mean Platelet Volume 6.8 fL (7.4-10.4); Platelet Count 297 10^3/uL (150-450); Red Blood Count 2.43 10^6 /uL (4.18-5.48); Red Cell Distribution Width 14 % (10-15); White Blood Count 10.9 10^3/uL (3.5-10.8)
[2022-09-11 08:55] LABS: Calcium 8.4 mg/dL (8.6-10.3); Potassium 4.6 mmol/L (3.5-5.0); eGFR CKD-EPI 10.1 (>60)
[2022-09-11] MEDS: Pantoprazole VIAL 40 MG VIAL IV SCH (10:10)
[2022-09-11] MEDS: Multivitamins/Minerals TAB PO SCH (10:11)
[2022-09-11] MEDS ORDERED: Heparin 1,000 UNIT/ML 10 ml (10,000 UNITS) CATHLAB/DIALYSIS DIALYSIS ONE (15:00)
[2022-09-11] MEDS: Heparin 1,000 UNIT/ML 10 ml (10,000 UNITS) CATHLAB/DIALYSIS DIALYSIS PRN (15:12)
[2022-09-11] MEDS: SPIRIVA Respimat (tiotropium) 2.5 mcg/inh Inhaler INH SCH (19:04)
[2022-09-12 06:10] LABS: ABS Lymphocytes 0.1 10^3/ul (1.0-4.8); ABS Monocytes 0.2 10^3/ul (0-0.8); ABS Neutrophils 10.2 10^3/ul (1.5-7.7); Hematocrit 24 % (42-52); Hemoglobin 7.8 g/dL (14.0-18.0); Lymphocyte % 1.3 %; Mean Corpuscular HGB Conc 33 g/dL (31-36); Mean Corpuscular Hemoglobin 33 pg (27-31); Mean Corpuscular Volume 99 fL (80-94); Nucleated Red Blood Cells % 0.1; Platelet Count 249 10^3/uL (150-450); Red Blood Count 2.37 10^6 /uL (4.18-5.48); Red Cell Distribution Width 14 % (10-15); White Blood Count 10.6 10^3/uL (3.5-10.8)
[2022-09-12 06:54] LABS: Potassium 4.5 mmol/L (3.5-5.0); eGFR CKD-EPI 13.7 (>60)
[2022-09-12] MEDS ORDERED: Magnesium Sulfate 2 gm BAG 2 GM/50 ML BAG IVPB ONE (07:19)
[2022-09-12] MEDS: Pantoprazole VIAL 40 MG VIAL IV SCH (09:32)
[2022-09-12] MEDS: Multivitamins/Minerals TAB PO SCH (09:32)
[2022-09-12] MEDS ORDERED: Iron Sucrose 200 MG in NS 0.9% 100 ml BAG 100 ML IVPB ONE (19:26)
[2022-09-12] MEDS: SPIRIVA Respimat (tiotropium) 2.5 mcg/inh Inhaler INH SCH (19:50)
[2022-09-13 06:44] LABS: ABS Lymphocytes 0.1 10^3/ul (1.0-4.8); ABS Monocytes 0.5 10^3/ul (0-0.8); ABS Neutrophils 11.4 10^3/ul (1.5-7.7); Hematocrit 25 % (42-52); Hemoglobin 8.3 g/dL (14.0-18.0); Lymphocyte % 1.2 %; Mean Corpuscular HGB Conc 34 g/dL (31-36); Mean Corpuscular Hemoglobin 34 pg (27-31); Mean Corpuscular Volume 100 fL (80-94); Mean Platelet Volume 7.3 fL (7.4-10.4); Nucleated Red Blood Cells % 0.1; Platelet Count 238 10^3/uL (150-450); Red Blood Count 2.46 10^6 /uL (4.18-5.48); Red Cell Distribution Width 14 % (10-15)
[2022-09-13 07:01] LABS: Calcium 8.4 mg/dL (8.6-10.3)
[2022-09-13] MEDS: Multivitamins/Minerals TAB PO SCH (08:23)
[2022-09-13] MEDS: Pantoprazole VIAL 40 MG VIAL IV SCH (08:23)
[2022-09-13] MEDS: SPIRIVA Respimat (tiotropium) 2.5 mcg/inh Inhaler INH SCH (21:09)
[2022-09-14 07:21] LABS: Calcium 8.6 mg/dL (8.6-10.3); Potassium 4.7 mmol/L (3.5-5.0); eGFR CKD-EPI 9.5 (>60)
[2022-09-14 07:25] LABS: ABS Basophils 0.1 10^3/ul (0-0.2); ABS Lymphocytes 0.2 10^3/ul (1.0-4.8); ABS Monocytes 0.3 10^3/ul (0-0.8); ABS Neutrophils 12.9 10^3/ul (1.5-7.7); Hematocrit 26 % (42-52); Hemoglobin 8.6 g/dL (14.0-18.0); Lymphocyte % 1.7 %; Mean Corpuscular HGB Conc 32 g/dL (31-36); Mean Corpuscular Hemoglobin 33 pg (27-31); Mean Corpuscular Volume 102 fL (80-94); Mean Platelet Volume 7.3 fL (7.4-10.4); Nucleated Red Blood Cells % 0.1; Platelet Count 224 10^3/uL (150-450); Red Blood Count 2.58 10^6 /uL (4.18-5.48); Red Cell Distribution Width 14 % (10-15); White Blood Count 13.5 10^3/uL (3.5-10.8)
[2022-09-14] MEDS: Pantoprazole VIAL 40 MG VIAL IV SCH (08:33)
[2022-09-14] MEDS: Multivitamins/Minerals TAB PO SCH (08:34)
[2022-09-14] MEDS ORDERED: Iron Sucrose 200 MG in NS 0.9% 100 ml BAG 100 ML IVPB ONE (10:00)
[2022-09-14] MEDS: cloNIDine 0.1 MG PATCH 0.1 MG/24 HR 7 DAY PATCH TRANSDERM SCH (13:53)
[2022-09-14] MEDS: Heparin 1,000 UNIT/ML 10 ml (10,000 UNITS) CATHLAB/DIALYSIS DIALYSIS PRN ×4 (15:33→18:14)
[2022-09-14] MEDS: Albuterol HFA INHALER 8 gm MDI INH PRN (16:02)
[2022-09-14] MEDS: SPIRIVA Respimat (tiotropium) 2.5 mcg/inh Inhaler INH SCH (19:20)
[2022-09-15 06:04] LABS: ABS Lymphocytes 0.2 10^3/ul (1.0-4.8); ABS Monocytes 0.4 10^3/ul (0-0.8); Hematocrit 27 % (42-52); Hemoglobin 8.9 g/dL (14.0-18.0); Lymphocyte % 1.3 %; Mean Corpuscular HGB Conc 34 g/dL (31-36); Mean Corpuscular Hemoglobin 33 pg (27-31); Mean Corpuscular Volume 99 fL (80-94); Mean Platelet Volume 7.4 fL (7.4-10.4); Nucleated Red Blood Cells % 0.1; Platelet Count 230 10^3/uL (150-450); Red Blood Count 2.68 10^6 /uL (4.18-5.48); Red Cell Distribution Width 14 % (10-15); White Blood Count 16.7 10^3/uL (3.5-10.8)
[2022-09-15 06:18] LABS: Calcium 8.3 mg/dL (8.6-10.3); Potassium 4.1 mmol/L (3.5-5.0); eGFR CKD-EPI 14.3 (>60)
[2022-09-15] MEDS ORDERED: Zosyn per Pharmacy NOTE FOLLOW UP SCH (09:00)
[2022-09-15] MEDS ORDERED: ZOSYN 3.375 GM x ONE DOSE over 30 miuntes IV (09:30)
[2022-09-15] MEDS: Multivitamins/Minerals TAB PO SCH (10:01)
[2022-09-15] MEDS: Pantoprazole VIAL 40 MG VIAL IV SCH (10:02)
[2022-09-15] MEDS: ZOSYN 3.375 GM Q8H per EXTENDED INFUSION IV SCH (14:33)
[2022-09-15] MEDS: SPIRIVA Respimat (tiotropium) 2.5 mcg/inh Inhaler INH SCH (20:51)
[2022-09-16] MEDS: ZOSYN 3.375 GM Q8H per EXTENDED INFUSION IV SCH (04:02)
[2022-09-16 06:05] LABS: ABS Lymphocytes 0.2 10^3/ul (1.0-4.8); ABS Monocytes 0.2 10^3/ul (0-0.8); Hematocrit 23 % (42-52); Hemoglobin 7.7 g/dL (14.0-18.0); Lymphocyte % 1.3 %; Mean Corpuscular HGB Conc 33 g/dL (31-36); Mean Corpuscular Hemoglobin 33 pg (27-31); Mean Corpuscular Volume 101 fL (80-94); Mean Platelet Volume 7.9 fL (7.4-10.4); Nucleated Red Blood Cells % 0.1; Platelet Count 163 10^3/uL (150-450); Red Blood Count 2.32 10^6 /uL (4.18-5.48); Red Cell Distribution Width 14 % (10-15); White Blood Count 12.4 10^3/uL (3.5-10.8)
[2022-09-16 06:29] LABS: Calcium 7.8 mg/dL (8.6-10.3); Potassium 3.9 mmol/L (3.5-5.0)
[2022-09-16] MEDS: Multivitamins/Minerals TAB PO SCH (08:19)
[2022-09-16] MEDS: Pantoprazole VIAL 40 MG VIAL IV SCH (08:23)
[2022-09-16] MEDS: Heparin 1,000 UNIT/ML 10 ml (10,000 UNITS) CATHLAB/DIALYSIS DIALYSIS PRN ×3 (08:55→12:27)
[2022-09-16] MEDS ORDERED: Iron Sucrose 200 MG in NS 0.9% 100 ml BAG 100 ML IVPB ONE (10:00)
[2022-09-16 12:46] LABS: Hepatitis B Surface Ab Not Immune (Immune); Hepatitis C Antibody Negative (Negative)
[2022-09-16 12:47] LABS: Hepatitis B Surface Antigen Nonreactive (Nonreactive)
[2022-09-16 12:52] LABS: Hepatitis B Core IgM Nonreactive (Nonreactive)
[2022-09-16] MEDS: SPIRIVA Respimat (tiotropium) 2.5 mcg/inh Inhaler INH SCH (19:09)
[2022-09-17 05:38] LABS: ABS Lymphocytes 0.2 10^3/ul (1.0-4.8); ABS Monocytes 0.3 10^3/ul (0-0.8); ABS Neutrophils 12.3 10^3/ul (1.5-7.7); Hematocrit 26 % (42-52); Hemoglobin 8.6 g/dL (14.0-18.0); Lymphocyte % 1.7 %; Mean Corpuscular HGB Conc 33 g/dL (31-36); Mean Corpuscular Hemoglobin 33 pg (27-31); Mean Corpuscular Volume 100 fL (80-94); Mean Platelet Volume 7.5 fL (7.4-10.4); Platelet Count 156 10^3/uL (150-450); Red Cell Distribution Width 14 % (10-15); White Blood Count 12.8 10^3/uL (3.5-10.8)
[2022-09-17 06:21] LABS: Calcium 7.7 mg/dL (8.6-10.3); Potassium 3.9 mmol/L (3.5-5.0); eGFR CKD-EPI 15.2 (>60)
[2022-09-17] MEDS: Multivitamins/Minerals TAB PO SCH (10:06)
[2022-09-17 11:41] LABS: Urine Appearance Clear; Urine Bilirubin Negative (Negative); Urine Blood 3+ (Large) (Negative); Urine Color Yellow; Urine Glucose Trace (100mg/dL) (Negative); Urine Ketones Negative (Negative); Urine Nitrite Negative (Negative); Urine Protein 3+ (>=300 mg/dL) (Negative); Urine Urobilinogen 0.2 (Negative) (Negative); Urine pH 5.5 (5.0-9.0)
[2022-09-17 12:24] LABS: Urine Bacteria 1+ (Absent); Urine Red Blood Cell 3+(>10/hpf) (Absent); Urine White Blood Cell 2+(11-20/hpf) (Absent)
[2022-09-17] MEDS: SPIRIVA Respimat (tiotropium) 2.5 mcg/inh Inhaler INH SCH ×2 (18:50→18:51)
[2022-09-18] MEDS: SPIRIVA Respimat (tiotropium) 2.5 mcg/inh Inhaler INH SCH ×2 (05:21→18:39)
[2022-09-18 06:26] LABS: ABS Lymphocytes 0.3 10^3/ul (1.0-4.8); ABS Monocytes 0.2 10^3/ul (0-0.8); ABS Neutrophils 12.7 10^3/ul (1.5-7.7); Hematocrit 27 % (42-52); Lymphocyte % 2.1 %; Mean Corpuscular HGB Conc 34 g/dL (31-36); Mean Corpuscular Hemoglobin 34 pg (27-31); Mean Corpuscular Volume 100 fL (80-94); Nucleated Red Blood Cells % 0.1; Platelet Count 158 10^3/uL (150-450); Red Blood Count 2.66 10^6 /uL (4.18-5.48); Red Cell Distribution Width 14 % (10-15); White Blood Count 13.3 10^3/uL (3.5-10.8)
[2022-09-18 06:46] LABS: Calcium 7.7 mg/dL (8.6-10.3); eGFR CKD-EPI 11.3 (>60)
[2022-09-18] MEDS: Multivitamins/Minerals TAB PO SCH (08:42)
[2022-09-18] MEDS: Heparin 1,000 UNIT/ML 10 ml (10,000 UNITS) CATHLAB/DIALYSIS DIALYSIS PRN ×5 (09:00→12:48)
[2022-09-18] MEDS ORDERED: Iron Sucrose 200 MG in NS 0.9% 100 ml BAG 100 ML IVPB ONE (10:00)
[2022-09-19 06:19] LABS: ABS Lymphocytes 0.2 10^3/ul (1.0-4.8); ABS Monocytes 0.2 10^3/ul (0-0.8); ABS Neutrophils 13.8 10^3/ul (1.5-7.7); Hematocrit 29 % (42-52); Lymphocyte % 1.4 %; Mean Corpuscular HGB Conc 34 g/dL (31-36); Mean Corpuscular Hemoglobin 34 pg (27-31); Mean Corpuscular Volume 98 fL (80-94); Mean Platelet Volume 7.9 fL (7.4-10.4); Platelet Count 184 10^3/uL (150-450); Red Blood Count 2.97 10^6 /uL (4.18-5.48); Red Cell Distribution Width 14 % (10-15); White Blood Count 14.2 10^3/uL (3.5-10.8)
[2022-09-19] MEDS: SPIRIVA Respimat (tiotropium) 2.5 mcg/inh Inhaler INH SCH ×2 (06:36→20:17)
[2022-09-19 06:57] LABS: Calcium 7.5 mg/dL (8.6-10.3); Potassium 4.3 mmol/L (3.5-5.0); eGFR CKD-EPI 16.3 (>60)
[2022-09-19] MEDS: Multivitamins/Minerals TAB PO SCH (09:17)
[2022-09-19] MEDS: Ure-Na 15 GM POWD.PACK PO SCH ×2 (18:05→19:57)
[2022-09-20] MEDS: Multivitamins/Minerals TAB PO SCH (07:33)
[2022-09-20] MEDS: Ure-Na 15 GM POWD.PACK PO SCH ×2 (07:34→20:55)
[2022-09-20 09:45] LABS: Potassium 4.5 mmol/L (3.5-5.0); eGFR CKD-EPI 10.9 (>60)
[2022-09-20] MEDS: SPIRIVA Respimat (tiotropium) 2.5 mcg/inh Inhaler INH SCH (20:16)
[2022-09-21 06:18] LABS: ABS Lymphocytes 0.2 10^3/ul (1.0-4.8); ABS Monocytes 0.1 10^3/ul (0-0.8); ABS Neutrophils 12.2 10^3/ul (1.5-7.7); Hematocrit 30 % (42-52); Hemoglobin 9.9 g/dL (14.0-18.0); Lymphocyte % 1.5 %; Mean Corpuscular HGB Conc 33 g/dL (31-36); Mean Corpuscular Hemoglobin 33 pg (27-31); Mean Corpuscular Volume 100 fL (80-94); Mean Platelet Volume 7.8 fL (7.4-10.4); Platelet Count 216 10^3/uL (150-450); Red Cell Distribution Width 14 % (10-15); White Blood Count 12.5 10^3/uL (3.5-10.8)
[2022-09-21 06:34] LABS: Calcium 7.8 mg/dL (8.6-10.3); Potassium 4.1 mmol/L (3.5-5.0); eGFR CKD-EPI 9.1 (>60)
[2022-09-21] MEDS: Heparin 1,000 UNIT/ML 10 ml (10,000 UNITS) CATHLAB/DIALYSIS DIALYSIS PRN ×3 (09:12→12:17)
[2022-09-21] MEDS: Multivitamins/Minerals TAB PO SCH (09:21)
[2022-09-21] MEDS: Ure-Na 15 GM POWD.PACK PO SCH ×2 (09:21→22:26)
[2022-09-21] MEDS: cloNIDine 0.1 MG PATCH 0.1 MG/24 HR 7 DAY PATCH TRANSDERM SCH (13:09)
[2022-09-21] MEDS: SPIRIVA Respimat (tiotropium) 2.5 mcg/inh Inhaler INH SCH (19:22)
[2022-09-22 05:57] LABS: ABS Lymphocytes 0.1 10^3/ul (1.0-4.8); ABS Monocytes 0.2 10^3/ul (0-0.8); ABS Neutrophils 11.4 10^3/ul (1.5-7.7); Hematocrit 28 % (42-52); Hemoglobin 9.7 g/dL (14.0-18.0); Mean Corpuscular HGB Conc 34 g/dL (31-36); Mean Corpuscular Hemoglobin 34 pg (27-31); Mean Corpuscular Volume 98 fL (80-94); Mean Platelet Volume 7.5 fL (7.4-10.4); Platelet Count 225 10^3/uL (150-450); Red Blood Count 2.88 10^6 /uL (4.18-5.48); Red Cell Distribution Width 14 % (10-15); White Blood Count 11.7 10^3/uL (3.5-10.8)
[2022-09-22 06:17] LABS: Calcium 7.7 mg/dL (8.6-10.3); Magnesium 1.9 mg/dL (1.9-2.7); Potassium 4.3 mmol/L (3.5-5.0)
[2022-09-22] MEDS: Multivitamins/Minerals TAB PO SCH (10:15)
[2022-09-22 15:03] LABS: Rapid COVID-19 Molecular Undetected (Undetected)
[2022-09-22] MEDS: SPIRIVA Respimat (tiotropium) 2.5 mcg/inh Inhaler INH SCH (19:16)
[2022-09-23 06:14] LABS: ABS Lymphocytes 0.2 10^3/ul (1.0-4.8); ABS Monocytes 0.2 10^3/ul (0-0.8); ABS Neutrophils 15.9 10^3/ul (1.5-7.7); Hematocrit 29 % (42-52); Hemoglobin 9.8 g/dL (14.0-18.0); Mean Corpuscular HGB Conc 33 g/dL (31-36); Mean Corpuscular Hemoglobin 33 pg (27-31); Mean Corpuscular Volume 98 fL (80-94); Mean Platelet Volume 7.7 fL (7.4-10.4); Platelet Count 241 10^3/uL (150-450); Red Blood Count 2.99 10^6 /uL (4.18-5.48); Red Cell Distribution Width 14 % (10-15); White Blood Count 16.3 10^3/uL (3.5-10.8)
[2022-09-23 06:50] LABS: Calcium 7.8 mg/dL (8.6-10.3); Potassium 4.8 mmol/L (3.5-5.0); eGFR CKD-EPI 11.2 (>60)
[2022-09-23] MEDS: Heparin 1,000 UNIT/ML 10 ml (10,000 UNITS) CATHLAB/DIALYSIS DIALYSIS PRN ×4 (07:16→10:57)
[2022-09-23] MEDS: Albuterol HFA INHALER 8 gm MDI INH PRN (11:03)
[2022-09-23] MEDS: Multivitamins/Minerals TAB PO SCH (11:09)
[2022-09-23] MEDS: SPIRIVA Respimat (tiotropium) 2.5 mcg/inh Inhaler INH SCH (19:15)
[2022-09-24] MEDS: Multivitamins/Minerals TAB PO SCH (10:27)
[2022-09-24 11:33] VITALS: BP 129/85
[2022-09-24 13:18] LABS: Calcium 7.6 mg/dL (8.6-10.3); Potassium 4.5 mmol/L (3.5-5.0); eGFR CKD-EPI 14.2 (>60)
[2022-09-24 14:33] LABS: TB1 Ag minus Nil Result 0.01 IU/mL; TB2 Ag minus Nil Result 0.01 IU/mL
[2022-09-24 14:39] LABS: QuantiferonTb Gold Plus Result Indeterminate (Negative)
[2022-09-24] MEDS: SPIRIVA Respimat (tiotropium) 2.5 mcg/inh Inhaler INH SCH (20:16)
== END 2022-09-24 15:30 | DRG 643 ==
LOC: ED 13:23 → SUATTDRO 16:40 → EDHOLD 16:40 → ICU 17:14 → MED 09-10 18:06
PROVIDERS: ADMIT Internal Medicine; ATTEND Hospitalist

== ENCOUNTER 2022-09-26 11:12 | Inpatient (IN) ==
[~2022-09-26 11:12] MED LIST: Calcium CHLORIDE 10% SYRINGE 1 GM/10 ML ONE; EPINEPHrine SYR 0.1MG/ML 10 ml SYRINGE ONE; Sodium Bicarbonate 8.4% SYR 50 ml SYRINGE ONE
[2022-09-26 11:40] LABS: ABS Lymphocytes 0.4 10^3/ul (1.0-4.8); ABS Nucleated RBC 0.1 10^3/ul; Eosinophil % 0.4 %; Hematocrit 27 % (42-52); Hemoglobin 8.5 g/dL (14.0-18.0); Lymphocyte % 28.1 %; Mean Corpuscular HGB Conc 31 g/dL (31-36); Mean Corpuscular Hemoglobin 33 pg (27-31); Mean Corpuscular Volume 107 fL (80-94); Mean Platelet Volume 7.9 fL (7.4-10.4); Platelet Count 156 10^3/uL (150-450); Red Blood Count 2.55 10^6 /uL (4.18-5.48); Red Cell Distribution Width 15 % (10-15); White Blood Count 1.3 10^3/uL (3.5-10.8)
[2022-09-26 12:18] LABS: PO2 Arterial 103 mmHg (80-100)
[2022-09-26 12:25] LABS: PCO2 Arterial 74 mmHg (35-45)
[2022-09-26 12:51] LABS: Calcium 9.3 mg/dL (8.6-10.3); Magnesium 2.3 mg/dL (1.9-2.7); Potassium 5.7 mmol/L (3.5-5.0); Total Bilirubin 0.5 mg/dL (0.2-1.0)
[2022-09-26 12:57] LABS: eGFR CKD-EPI 12.6 (>60)
[2022-09-26] MEDS ORDERED: Norepinephrine 16MCG/ML BAG NS 4,000 MCG/250 ML BAG IV SCH (13:00)
[2022-09-26 13:18] LABS: High Sensitivity Troponin 1 Hr 282 pg/mL (<20)
[2022-09-26] MEDS ORDERED: Morphine 4 MG/ML VIAL (1 ml) IV ONE (13:35)
[2022-09-26] MEDS ORDERED: LORazepam 2 mg VIAL 1 ml IV PUSH PRN (13:53)
[2022-09-26] MEDS ORDERED: Atropine 1% (ORAL/SL) 15 ML BTL SL PRN (13:53)
[2022-09-26 14:17] VITALS: BP 80/48
[2022-09-27 11:28] LABS: ABS Neutrophils 0.8 10^3/ul (1.5-7.7)
== END 2022-09-26 14:15 | disposition expired | DRG 297 ==
LOC: ED 11:12 → EDHOLD 13:48
PROVIDERS: ADMIT Internal Medicine; ATTEND Internal Medicine